=== PATIENT | female | born 1955 | race African-American/Black ===

== ENCOUNTER 2018-05-23 13:47 | Inpatient (IN) ==
[2018-05-23] MEDS ORDERED: hydrALAZINE 20 MG/1 ML VIAL IV STA (14:18)
[2018-05-23 14:30] LABS: Basophils % 1.1 % (0.0-0.8); Eosinophils # 0.1 10*3/uL (0.0-0.87); Eosinophils % 2.1 % (0.00-10.9); Hematocrit 42.3 VOL% (35.7-47.0); Hemoglobin 13.6 GM/DL (12.0-16.0); Immature Granulocytes % 0.3 %; Immature Granulocytes Absolute 0.01 #; Lymphocytes % 27.5 % (21.3-54.2); Mean Corpuscular HGB Conc 32.2 GM/DL (32-36); Mean Corpuscular Hemoglobin 26 PG (27-34); Mean Corpuscular Volume 81.3 FL (87-102); Mean Platelet Volume 9.9 FL (9.6-12.0); Monocytes # 0.5 10*3/uL (0.11-0.8); Monocytes % 12.5 % (1.7-12.7); Neutrophils # 2.1 10*3/uL (1.4-7.4); Neutrophils % 56.5 % (38.7-73.9); Platelet Count 217 T/CUMM (130-400); Red Cell Distribution Width 14.5 % (9.3-17.3); White Blood Count 3.8 T/CUMM (4-12)
[2018-05-23 14:41] LABS: PT Patient Result 10.4 SECS; Partial Thromboplastin Time 26.1 SECS (0-40)
[2018-05-23 14:52] LABS: Albumin 3.9 G/DL (3.4-5.0); Bilirubin,Total 0.6 MG/DL (0.2-1.0); Calcium 8.9 MG/DL (8.5-10.1); Potassium 3.4 MMOL/L (3.5-5.1); Total Protein 7.7 G/DL (6.4-8.3)
[2018-05-23 14:58] LABS: Apearance,Urine CLEAR (Clear); Bilirubin,Urine Negative (Negative); Blood, Urine Negative (Negative); Glucose,Urine (UA) Negative (Negative); Ketones,Urine Negative (Negative); Mucus,Urine Occasional /LPF (Occasional); Nitrite,Urine Negative (Negative); Protein,Urine Negative; RBC,Urine <1 /HPF (0-4); Squamous Epithelial Cell,Urine Occasional /HPF (0-10); Urine Color Colorless (Yellow); Urine Specific Gravity 1.005 (1.001-1.035); Urine Urobilinogen < 2.0 EU/DL (0.2-1.0); WBC,Urine <1 /HPF (0-6)
[2018-05-23 15:16] LABS: Barbiturates Screen,Urine Negative (Negative); Benzodiazepines Screen,Urine Negative (Negative); Cannabinoid Screen,Urine Negative (Negative); Opiate Screen,Urine Negative (Negative); Phencyclidine Screen,Urine Negative (Negative)
[2018-05-23] MEDS ORDERED: ACETAMINOPHEN 325 MG TABLET PO PRN (16:04)
[2018-05-23] MEDS ORDERED: DOCUSATE SODIUM 100 MG CAPSULE PO PRN (16:04)
[2018-05-23] MEDS ORDERED: ONDANSETRON 4 MG/2 ML VIAL IV PRN (16:04)
[2018-05-23] MEDS ORDERED: traZODone 50 MG TABLET PO PRN (16:04)
[2018-05-23] MEDS ORDERED: hydrALAZINE 20 MG/1 ML VIAL IV PRN (16:36)
[2018-05-23] MEDS ORDERED: amLODIPine 5 MG TABLET PO SCH (21:00)
[2018-05-23] MEDS: ENOXAPARIN 40 MG/0.4 ML SYRINGE SUBCUT SCH (21:23)
[2018-05-23] MEDS: ATORVASTATIN 40 MG TABLET PO SCH (21:23)
[2018-05-24] MEDS: LEVOTHYROXINE 75 MCG TABLET PO SCH (06:07)
[2018-05-24 06:53] LABS: Basophils % 0.5 % (0.0-0.8); Hematocrit 40.7 VOL% (35.7-47.0); Hemoglobin 13.2 GM/DL (12.0-16.0); Immature Granulocytes % 0.2 %; Immature Granulocytes Absolute 0.01 #; Lymphocytes # 0.7 10*3/uL (1.4-4.0); Lymphocytes % 12.1 % (21.3-54.2); Mean Corpuscular HGB Conc 32.4 GM/DL (32-36); Mean Corpuscular Hemoglobin 27 PG (27-34); Mean Corpuscular Volume 81.6 FL (87-102); Mean Platelet Volume 10.3 FL (9.6-12.0); Monocytes # 0.3 10*3/uL (0.11-0.8); Monocytes % 4.8 % (1.7-12.7); Neutrophils # 4.8 10*3/uL (1.4-7.4); Neutrophils % 82.4 % (38.7-73.9); Platelet Count 217 T/CUMM (130-400); Red Blood Count 4.99 MC/CUMM (3.8-5.5); Red Cell Distribution Width 14.6 % (9.3-17.3); White Blood Count 5.8 T/CUMM (4-12)
[2018-05-24 07:31] LABS: Risk Ratio 3.24; Thyroid Stimulating Hormone 1.05 uIU/ml (0.358-3.74); VLDL CHOLESTEROL 13.8 MG/DL
[2018-05-24] MEDS ORDERED: IRBESARTAN 300 MG PO SCH (09:00)
[2018-05-24] MEDS: AMIODARONE 200 MG TABLET PO SCH (12:25)
[2018-05-24] MEDS: ASPIRIN EC 81 MG TABLET PO SCH (12:52)
[2018-05-24] MEDS: PANTOPRAZOLE 40 MG TABLET PO SCH (12:52)
[2018-05-24] MEDS: METOPROLOL TARTRATE 50 MG TABLET PO SCH (13:14)
[2018-05-24] MEDS: ENOXAPARIN 40 MG/0.4 ML SYRINGE SUBCUT SCH (20:47)
[2018-05-24] MEDS: ATORVASTATIN 40 MG TABLET PO SCH (20:47)
[2018-05-25] MEDS: LEVOTHYROXINE 75 MCG TABLET PO SCH (05:37)
[2018-05-25 06:00] LABS: Basophils % 0.8 % (0.0-0.8); Eosinophils # 0.1 10*3/uL (0.0-0.87); Eosinophils % 1.6 % (0.00-10.9); Hematocrit 38.1 VOL% (35.7-47.0); Hemoglobin 12.2 GM/DL (12.0-16.0); Immature Granulocytes % 0.3 %; Immature Granulocytes Absolute 0.01 #; Lymphocytes # 1.5 10*3/uL (1.4-4.0); Lymphocytes % 37.8 % (21.3-54.2); Mean Corpuscular Hemoglobin 26 PG (27-34); Mean Corpuscular Volume 82.3 FL (87-102); Mean Platelet Volume 10.1 FL (9.6-12.0); Monocytes # 0.6 10*3/uL (0.11-0.8); Monocytes % 14.8 % (1.7-12.7); Neutrophils # 1.7 10*3/uL (1.4-7.4); Neutrophils % 44.7 % (38.7-73.9); Platelet Count 202 T/CUMM (130-400); Red Blood Count 4.63 MC/CUMM (3.8-5.5); Red Cell Distribution Width 14.7 % (9.3-17.3); White Blood Count 3.8 T/CUMM (4-12)
[2018-05-25 06:26] LABS: Calcium 8.9 MG/DL (8.5-10.1); Osmolality,Calculated 291.6 MOS/KG (273-304); Potassium 3.6 MMOL/L (3.5-5.1)
[2018-05-25] MEDS: ASPIRIN EC 81 MG TABLET PO SCH (08:35)
[2018-05-25] MEDS: PANTOPRAZOLE 40 MG TABLET PO SCH (08:35)
[2018-05-25] MEDS: AMIODARONE 200 MG TABLET PO SCH (08:36)
[2018-05-25] MEDS ORDERED: METOPROLOL TARTRATE 50 MG TABLET PO SCH (09:00)
[2018-05-25] MEDS ORDERED: amLODIPine 5 MG TABLET PO SCH (09:00)
[2018-05-25 11:29] VITALS: BP 109/71
== END 2018-05-25 11:15 | disposition home or self-care (01) | DRG 93 ==
LOC: N.ED 13:47 → N.EDINP 16:04 → N.4E 19:25
PROVIDERS: ADMIT Internal Medicine; ATTEND Internal Medicine